=== PATIENT | male | born 1955 | race Hispanic/Latino ===

== ENCOUNTER 2020-07-21 06:35 | Outpatient (CLI) | payer MEDICARE ==
[2020-07-21 12:10] LABS: Bilirubin Neg (Negative); Blood, Urine 25 (Negative); Clarity Clear (Clear); Glucose, Urine (Dipstick) 250 mg/dL (Negative); Ketone, Urine Negative (Negative); Leukocyte Negative (Negative); Nitrite Negative (Negative); Protein, Urine (Dipstick) Negative (Neg-Trace); Urobilinogen Normal mg/dL (Less than 2)
[2020-07-21 12:13] LABS: #Eosinphils 0.2 10x3/uL (0.0-0.5); #Monocytes 0.6 10x3/uL (0.0-1.1); #Neutrophils 3.5 10x3/uL (1.5-8.4); %Basophils 0.5 % (0.0-2.0); %Eosinophils 3.8 % (0.0-6.0); %Lymphocytes 27.7 % (18.0-47.0); %Monocytes 9.8 % (0.0-10.0); %Neutrophils 57.7 % (40.0-75.0); Hemoglobin 15.4 g/dL (14.0-18.0); Mean Corpuscular HGB CONC 33.6 G/DL (32.0-36.0); Mean Corpuscular Hemoglobin 29.8 PG (27.0-33.0); Mean Corpuscular Volume 88.6 fl (80.0-100.0); Mean Platelet Volume 11.7 fl (7.4-10.4); Platelet Count 189 10x3/uL (130-400); Red Blood Cell (RBC) Count 5.17 10x6/uL (4.40-5.80)
[2020-07-21 12:15] LABS: Anion Gap 12 mmol/L (10-20); BUN (Urea Nitrogen) 19 mg/dL (8.4-25.7); Calc. Creatinine Clearance 0 mL/min (70-130); Calcium 8.7 mg/dL (7.8-10.44); Carbon Dioxide 22 mmol/L (23-31); Chloride 108 mmol/L (98-107); Glucose 168 mg/dL (80-115); Potassium 4.4 mmol/L (3.5-5.1); Sodium 138 mmol/L (136-145)
[2020-07-21 12:31] LABS: INR-International Normal Ratio 1.1; Prothrombin Time 11.3 sec (9.5-12.1)
[2020-07-21 12:52] LABS: RBC/HPF 0-3 HPF (0-3); WBC/HPF 0-3 HPF (0-3)
[2020-07-21 12:54] LABS: Squamous Epithelial 0-3 HPF (0-3)
[2020-07-21 12:55] LABS: Bacteria/HPF Rare-Few HPF (None Seen); Mucous/LPF Rare LPF (<2+)
[2020-07-21 12:56] LABS: Calcium Oxalate Crystals Rare HPF (None Seen)
[2020-07-21 23:04] LABS: SARS-CoV-2 MS2 Positive; SARS-CoV-2 N Gene Negative; SARS-CoV-2 S Gene Negative; SARS-CoV-2 by NAA Not Detected (NotDetected); SARS-CoV-2 orf1ab Negative
== END 2020-07-21 06:36 | disposition home or self-care (01) ==
LOC: LABBT 06:35
PROVIDERS: ATTEND Orthopaedic Surgery
DX: Z01.818 Encounter for other preprocedural examination (principal); M17.11 Unilateral primary osteoarthritis, right knee; Z20.828 Contact with and (suspected) exposure to other viral communicable diseases
CPT/HCPCS: 80048; 81001; 85025; 85610; 87081; U0003; 87635; 93005; 93010

== ENCOUNTER 2020-07-26 07:12 | Observation (INO) | payer MEDICARE, BC ==
[2020-07-25 11:15] VITALS: BMI 34.4
--- NOTE | 2020-07-25 13:29 | HP ---
HISTORY OF PRESENT ILLNESS: The patient is a 64-year-old male with a long history of progressive degenerative arthritis of both knees, right greater than left. He has had progressive pain despite rest, restriction of activities, cortisone injections, and use of anti-inflammatory medication, most recently meloxicam. The pain is now interfering with day-to-day activities including walking, getting dressed, and sleeping. His pain is much worse on the right side. PAST MEDICAL HISTORY: The patient is otherwise in good health. He takes meloxicam and tramadol for pain. There is questionable history of diabetes. No major medical problems. FAMILY HISTORY: Otherwise unremarkable. SOCIAL HISTORY: Otherwise unremarkable. REVIEW OF SYSTEMS: Otherwise unremarkable. ALLERGIES: HE HAS NO KNOWN ALLERGIES. PHYSICAL EXAMINATION: GENERAL: This is a healthy male. HEENT: Unremarkable. NECK: Supple. CHEST: Clear. HEART: Regular rate and rhythm. ABDOMEN: Soft and nontender. RECTAL: Deferred. GENTIAL: Deferred. EXTREMITIES: Pertinent findings related to the knees. There is moderate varus deformity bilaterally. There is tenderness and crepitus over the medial joint line bilaterally, right greater than left. Range of motion is 5 to 115 degrees on the right and 5 to 125 degrees on the left. There is no instability. Distal pulses 1+. Neurovascular exam is intact. There is no pain with range of motion of the hip. DIAGNOSTIC STUDIES: X-rays of both knees reveal [id number] collapse medially of both knees. IMPRESSION: Degenerative arthritis, both knees, right symptomatic more than left. PLAN: Right total knee replacement. He will eventually require a staged left total knee replacement. The nature of the surgery, length of recovery, and potential complications, such as infection, loss of motion, incomplete relief, delayed wound healing, neurovascular injury, thromboembolic phenomena, possible transfusion, and need for revision have been discussed in detail. Job ID: [id number]
[2020-07-26] MEDS ORDERED: Tranexamic Acid 1,000 MG/10 ML VIAL ONE ×2 (07:30→11:52)
[2020-07-26] MEDS ORDERED: Sodium Chloride 0.9% 100 ML ONE (07:30)
[2020-07-26] MEDS ORDERED: Vancomycin 1.5 GRAM/300 ML BAG ONE (07:30)
[2020-07-26] MEDS ORDERED: Midazolam HCl 2 mg/2 ml Vial ONE (08:33)
[2020-07-26] MEDS ORDERED: Lidocaine 1% (PF) 30 ML VIAL ONE (08:33)
[2020-07-26] MEDS ORDERED: Fentanyl 100 MCG/2 ML VIAL ONE ×3 (08:33→12:40)
[2020-07-26] MEDS ORDERED: Bupivacaine 0.25% HCL 30 ML VIAL ONE (10:33)
[2020-07-26] MEDS ORDERED: Lidocaine 1% w/Epinephrine 1:100K 20 ML VIAL ONE (10:33)
[2020-07-26] MEDS ORDERED: Lidocaine 1% PF 5 ML VIAL ONE (10:43)
[2020-07-26] MEDS ORDERED: PROPOFOL 200 MG/20 ML VIAL ONE (10:43)
[2020-07-26] MEDS ORDERED: Ondansetron PF 4 MG/2 ML Vial ONE (10:43)
[2020-07-26] MEDS ORDERED: Ketorolac Tromethamine 30 MG/ML VIAL ONE ×3 (10:43→18:32)
[2020-07-26] MEDS ORDERED: Ropivacaine 0.2% HCl/PF (40 MG/20 ML VIAL) ONE (10:43)
[2020-07-26] MEDS ORDERED: Bupivacaine HCl 0.5%/Epinephrine 1:200,000/PF 30 ml Vial ONE (10:43)
[2020-07-26] MEDS ORDERED: Promethazine HCl 25 MG/ML VIAL SLOW IVP PRN ×2 (11:00→11:54)
[2020-07-26] MEDS ORDERED: Promethazine HCl 25 MG/ML VIAL IM PRN ×2 (11:00→11:15)
[2020-07-26] MEDS ORDERED: Ondansetron HCl/PF 4 MG/2 ML Vial IVP PRN (11:00)
[2020-07-26] MEDS ORDERED: Fentanyl 100 MCG/2 ML VIAL IV PRN (11:12)
[2020-07-26] MEDS ORDERED: Ropivacaine HCl/PF 250 ML in Premix Bag 1 BAG NERVE BLCK SCH (11:15)
[2020-07-26] MEDS ORDERED: traMADol HCl 50 MG TAB PO PRN ×2 (11:15)
[2020-07-26] MEDS ORDERED: Zolpidem Tartrate 5 MG TAB PO PRN ×2 (11:15→11:54)
[2020-07-26] MEDS ORDERED: Ketorolac Tromethamine 30 MG/ML VIAL IVP PRN (11:15)
[2020-07-26] MEDS ORDERED: Ondansetron PF 4 MG/2 ML Vial IVP PRN ×2 (11:15→11:54)
[2020-07-26] MEDS ORDERED: HYDROcodone/Acetaminophen 10/325 mg Tablet PO PRN ×3 (11:15→11:54)
[2020-07-26] MEDS ORDERED: diphenhydrAMINE 25 MG CAP PO PRN (11:54)
[2020-07-26] MEDS ORDERED: Fentanyl 100 MCG/2 ML VIAL SLOW IVP PRN ×2 (11:54)
[2020-07-26] MEDS ORDERED: Tranexamic Acid 1,000 MG in Sodium Chloride 0.9% 100 ML IVPB SCH ×2 (11:54→12:00)
--- NOTE | 2020-07-26 12:28 | OP ---
DATE OF PROCEDURE: 07/26/2020 This is Jamie Kumar PA-C dictating a report for Jovon Cobos MD. PREOPERATIVE DIAGNOSIS: End-stage tricompartmental osteoarthritis, right knee with degenerative genu varum. POSTOPERATIVE DIAGNOSIS: End-stage tricompartmental osteoarthritis, right knee with degenerative genu varum. PROCEDURE PERFORMED: Cemented cruciate-sparing computer-assisted navigated right total knee arthroplasty. FORK LIFT MECHANIC: Jamie Kumar PA-C. The delinquent tax collection assistant/co-surgeon was present throughout the entire case, providing tissue manipulation, exposure, retraction and limb manipulation, provide access for implantation and reduction. Also providing bleeding control and primary closure in conjunction with primary surgeon. ANESTHESIA: General via LMA, augmented with indwelling adductor canal and a single-shot sciatic block. COMPONENTS USED: [employer] Triathlon cemented primary size 5 cruciate sparing femoral component with a size 4 cemented primary tibial baseplate, 9 mm polyethylene fixed bearing insert, A32 patella button. FINDINGS: End-stage severe degenerative tricompartmental disease, [id number] arthrosis, periarticular osteophyte formation, large serous effusion, hypertrophic synovium, changes consistent with degenerative genu varum. DRAINS: None. SPECIMENS: None. COMPLICATIONS: None. COUNTS: Correct. INDICATION FOR SURGERY: Enrico is a 64-year-old male, who has had progressive right knee pain, amplified with standing and walking for the last 5 to 7 years. He has failed conservative management, elected to proceed with total knee arthroplasty as definitive treatment of his pain. PROCEDURE IN DETAIL: After informed consent was obtained in the preoperative holding area, the patient was taken to the operative suite where general anesthesia was induced. Once adequate level of general anesthesia was obtained, the patient was positioned and a well-padded tourniquet was placed around the right proximal thigh. The right lower extremity was then prepped and draped in the usual sterile fashion. Prior to exsanguination, a time-out was called and all members of the surgical team agreed upon site, surgeon, and patient. The extremity was then exsanguinated and the tourniquet was raised. A midline longitudinal incision was then made directly over the patella extending 2 fingerbreadths above the superior pole of the patella and 2 fingerbreadths inferior to the inferior patellar pole of the patella. Deeper subcutaneous layers were dissected sharply and local bleeding was controlled with Bovie electrocautery. A quad tendon longitudinal split was then made sharply and a median parapatellar arthrotomy was carried out both sharp and with Bovie electrocautery, carried down to 1 fingerbreadth medial to the tibial tubercle. The knee was then placed into flexion and the patella was everted nicely, and a copious fat pad ectomy was performed, allowing for greater exposure of the tibia. The computer-assisted distal femoral fiducial was then placed and pinned firmly, and the distal femoral cutting guide was pinned firmly into place. The oscillating saw was then used to remove the appropriate amount of bone. The 4-in-1 cutting block was then placed on the distal femur and the oscillating saw was used to remove the appropriate amount of bone off the anterior, posterior, and chamfer cuts. After completion of bone cuts, the anterior cruciate ligament was resected sharply and the posterior cruciate ligament retractor was placed and the tibia was subluxed for better exposure. Partial meniscectomies were carried out, and the tibial computer-assisted fiducial was pinned, and the cutting guide was placed. Oscillating saw was then used to remove the bone, with Hohmann retractors used to take care and protect the collateral ligaments. After the tibial resection was performed, a laminar pharmaceutical engineer was placed in between the freshened bone cuts. The knee placed at 90 degrees and further bilateral meniscectomies were carried out, and the curved osteotome and curettage were used to remove any excess bone spurs in the posterior compartment. The trial femoral component, tibial baseplate were placed with the appropriate polyethylene trial insert with an appropriate polyethylene spacer and patellar button. The knee was taken through full range of motion with flexion and extension from 0 to 90 degrees and patellar broach squarely in the trochlea without any squinting or subluxation noted. The knee was also stable to varus and valgus stressing at 0, 15, 45, and 90 degrees of flexion. The drawer was negative. All trial components were then removed and the keel punch was used to provide the appropriate defect in the tibia with a mallet. The freshened bone cuts were copiously irrigated with pulsatile lavage of about 1.5 L to remove all excess debris. The freshened bone cuts were then dried with suction and lap sponge. The knee was placed in flexion and retractors were placed to provide access to all bone cuts. Tobramycin-impregnated methyl methacrylate cement was then placed on the freshened bone cuts and implants which were malleted firmly into place. Curettage and [place] elevators were used to remove any excess bone cement. The knee was placed into full extension and the patellar button was placed under compression, and the cement was allowed to cure. Once completed, the components were again taken through full range of motion and copious irrigation of the knee was carried out with another liter of normal saline. All components were inspected fully with full range of motion and varus and valgus stressing. There was no laxity noted and full extension was observed clinically. Primary closure was accomplished with #2 interrupted Vicryl stitch of the arthrotomy defect. This was oversewn with a #2 running Quill barbed stitch. The subcutaneous layer was then closed with a running 0 barbed Monocryl stitch and skin closure accomplished with a running subcuticular 3-0 Monocryl barbed Quill stitch and augmented with cement on the skin. Tourniquet was lowered. Good spontaneous return of distal pulses was noted clinically and a sterile dressing was applied to the incision. The procedure was terminated without any complications. The patient was awakened in the operative suite and taken to the recovery room in stable condition. The delinquent tax collection assistant surgeon helped throughout the procedure by positioning the patient, stabilizing the limb, holding retractors, aligning the prosthesis, and closure of procedure site. TOURNIQUET TIME: 79 minutes at 300 mmHg. ESTIMATED BLOOD LOSS: Less than 100. Job ID: [id number]
--- NOTE | 2020-07-26 12:31 | RAD ---
XR Knee Rt 2 View: 07/26/2020 11:57 AM CLINICAL INDICATION: Postop right knee COMPARISON: None. FINDINGS: Bones: No acute fracture is demonstrated. Joints: There is a right total knee arthroplasty that projects in the expected position. There is sca ttered intra-articular and periarticular soft tissue gas.. Soft Tissue: As above. IMPRESSION: Right total knee arthroplasty.
[2020-07-26] MEDS: Sodium Chloride 0.9% 1,000 ML IV SCH ×2 (13:33→22:06)
[2020-07-26] MEDS: Ketorolac Tromethamine 30 MG/ML VIAL IVP SCH ×3 (13:34→23:25)
[2020-07-26] MEDS: CEFAZOLIN 2 GM in Premix Bag 1 BAG IVPB SCH ×2 (15:36→23:23)
[2020-07-26] MEDS ORDERED: Vancomycin HCl 1.5 GM in Sodium Chloride 0.9% 250 ML 300 ML IVPB SCH (20:00)
[2020-07-26] MEDS ORDERED: Vancomycin 1.5 GRAM/300 ML BAG 1.5 GM in Premix Bag 1 BAG IVPB SCH (22:00)
[2020-07-26] MEDS: Senokot S 8.6-50 MG TAB PO SCH (23:24)
[2020-07-26] MEDS: Aspirin 81 mg Enteric Coated Tablet PO SCH (23:24)
[2020-07-27] MEDS: Acetaminophen 325 MG TAB PO PRN ×3 (04:05→16:36)
[2020-07-27] MEDS: traMADol HCl 50 MG TAB PO PRN ×4 (04:06→19:54)
[2020-07-27 05:29] LABS: Hemoglobin 13.2 g/dL (14.0-18.0); Mean Corpuscular Hemoglobin 30.2 pg (27.0-31.0); Mean Corpuscular Volume 88.7 fL (78.0-98.0); Platelet Count 158 thou/uL (130-400); RBC Distribution Width 12.4 % (11.5-14.5); Red Blood Cell (RBC) Count 4.37 mill/uL (4.70-6.10); White Blood Cell (WBC) Count 12.4 thou/uL (4.8-10.8)
[2020-07-27] MEDS: Ketorolac Tromethamine 30 MG/ML VIAL IVP SCH ×3 (05:52→18:10)
[2020-07-27] MEDS: Sodium Chloride 0.9% 1,000 ML IV SCH ×3 (05:53→22:17)
[2020-07-27] MEDS: Multivitamin W/ Minerals 1 TAB PO SCH (08:37)
[2020-07-27] MEDS: Aspirin 81 mg Enteric Coated Tablet PO SCH ×2 (08:37→19:53)
[2020-07-27] MEDS: Senokot S 8.6-50 MG TAB PO SCH ×2 (08:37→19:56)
[2020-07-27] MEDS ORDERED: FLU VACC QS2020-21(65YR UP)/PF 240 MCG/0.7 ML SYRINGE IM ONE (09:00)
[2020-07-28] MEDS: Ketorolac Tromethamine 30 MG/ML VIAL IVP SCH ×3 (01:04→11:48)
[2020-07-28] MEDS: traMADol HCl 50 MG TAB PO PRN ×3 (06:15→17:11)
[2020-07-28] MEDS: HYDROcodone/Acetaminophen 10/325 mg Tablet PO PRN (09:34)
[2020-07-28] MEDS: Aspirin 81 mg Enteric Coated Tablet PO SCH ×2 (09:34→20:54)
[2020-07-28] MEDS: Senokot S 8.6-50 MG TAB PO SCH ×2 (09:34→20:54)
[2020-07-28] MEDS: Multivitamin W/ Minerals 1 TAB PO SCH (09:34)
[2020-07-28] MEDS: Acetaminophen 325 MG TAB PO PRN (17:11)
[2020-07-28] MEDS: Sodium Chloride 0.9% 1,000 ML IV SCH (19:42)
[2020-07-29] MEDS: HYDROcodone/Acetaminophen 10/325 mg Tablet PO PRN ×4 (02:50→20:27)
[2020-07-29] MEDS: Sodium Chloride 0.9% 1,000 ML IV SCH ×3 (02:53→18:34)
[2020-07-29] MEDS: traMADol HCl 50 MG TAB PO PRN (08:31)
[2020-07-29] MEDS: Aspirin 81 mg Enteric Coated Tablet PO SCH ×2 (08:31→20:27)
[2020-07-29] MEDS: Senokot S 8.6-50 MG TAB PO SCH ×2 (08:31→20:26)
[2020-07-29] MEDS: Multivitamin W/ Minerals 1 TAB PO SCH (08:31)
[2020-07-30] MEDS: HYDROcodone/Acetaminophen 10/325 mg Tablet PO PRN ×2 (04:05→13:04)
[2020-07-30] MEDS: Sodium Chloride 0.9% 1,000 ML IV SCH (06:36)
[2020-07-30] MEDS: Senokot S 8.6-50 MG TAB PO SCH (08:12)
[2020-07-30] MEDS: Multivitamin W/ Minerals 1 TAB PO SCH (08:12)
[2020-07-30] MEDS: traMADol HCl 50 MG TAB PO PRN (08:13)
[2020-07-30] MEDS: Aspirin 81 mg Enteric Coated Tablet PO SCH (08:14)
[2020-07-30 08:53] VITALS: TEMP 98.1
[2020-07-30 11:44] VITALS: BP 122/79
--- NOTE | 2020-07-31 06:40 | DIS ---
DATE OF ADMISSION: 07/26/2020 DATE OF DISCHARGE: 07/30/2020 HISTORY: The patient is a 64-year-old male with a long history of progressive degenerative arthritis of both knees, right symptomatic more than left, unresponsive to conservative treatment. He was taken to the operating room on the day of admission where he underwent right total knee replacement under general anesthesia with supplemental adductor canal and sciatic nerve blocks. His postop course was essentially benign. He has been afebrile. His postoperative H and H were 13 and 38. He is begun on program for ambulation with walker and active range of motion exercises. 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 He was also somewhat unsteady on his feet and required additional physical therapy. At present, the patient is much better, his swelling has decreased. He is afebrile. His wound is clean. Arrangements have been made for outpatient physical therapy. He will continue home exercises. He is given written wound care instructions. He is given a prescription for Olema 10 for pain, 60 tablets. He will continue aspirin 81 mg b.i.d. for one month for DVT prophylaxis. He will be rechecked in my office in 2 to 3 weeks or sooner if there are any problems prior to that time. DISCHARGE DIAGNOSIS: Degenerative arthritis, right knee. Job ID: [id number]
== END 2020-07-30 13:34 | disposition home or self-care (01) ==
LOC: SDC 07:12 → EDSTATUS 10:45 → INTOOBSV 21:57 → SURG A 21:57
PROVIDERS: ADMIT Orthopaedic Surgery; ATTEND Orthopaedic Surgery
PROC: 0SRC0J9 Replacement of Right Knee Joint with Synthetic Substitute, Cemented, Open Approach (ICD-10-PCS; principal; 2020-07-26)
PROC: 3E0T3BZ Introduction of Anesthetic Agent into Peripheral Nerves and Plexi, Percutaneous Approach (ICD-10-PCS; 2020-07-26)
DX: M17.0 Bilateral primary osteoarthritis of knee (principal); G89.18 Other acute postprocedural pain
CPT/HCPCS: 27447; 64416; 64445; 73560; 85027; 97110 ×3; 97116 ×5; 97139 ×4; 97530 ×2; C1713; C1776; 36415; 96374; 96375; 96376; G0378; J0690; J1885; J2001; J2250; J2405; J2704; J2795; J3010; J3370; J3490; J7050; S0020